=== PATIENT | female | born 2000 | race Caucasian/White ===

== ENCOUNTER 2021-03-24 22:22 | Emergency (ER) | payer MEDICAID, SELFPAY ==
[2021-03-24 22:27] VITALS: BP 104/67; PULSE 84; RESP 17; TEMP 36.8; O2SAT 97
--- NOTE | 2021-03-24 22:28 | ED.GENADUL_ITS ---
Discharge Plan Disposition Patient Disposition: HOME Condition: Stable Discharge Details Clinical Impression: Polysubstance abuse, Skin lesion, Cellulitis Primary Care Provider: Mahesh Phillips ED Provider: Ronaldo Barajas Home Meds and New Rx's Prescriptions: New hydroxyzine HCl 25 mg tablet 25 mg PO TID PRN (Reason: itching) Qty: 20 RF: 0 Continued sulfamethoxazole-trimethoprim [Bactrim DS] 800-160 mg tablet 1 tab PO Q12H Qty: 20 RF: 0 mupirocin 2 % ointment 1 applic topical TID Qty: 22 RF: 0 Discharge Instructions Instructions: Cellulitis (ED) Additional Instructions: At this time you do not have a fever. I cannot stress the importance of compliance with both topical and oral antibiotics. It is extremely important that you stop picking at your skin. Warm compresses every 2 hours for 20 minutes. I would also recommend that he stop using illicit drugs. I will provide you a prescription to help you with the itching. Take this medication as directed. Please watch for new or worsening symptoms and return to the ER for any concerns. I would like you to follow-up with your new primary care provider on Monday as already scheduled and if necessary obtain a dermatology referral at that time Discharge Data Discharge Date/Time-TO BE ENTERED AT DEPARTURE: 03/24/21 22:50 Medical Decision Making 20-year-old female who reports skin lesions on her scalp since 2019. She reports a recent IV fentanyl and heroin use as well as smoking methamphetamines over the past 5 days. She was seen at the walk-in clinic recently, placed on Bactroban and Bactrim but did not start taking the Bactrim until yesterday. Clinically she appears anxious, restless, during my examination she is constantly picking at her skin, scratching her scalp. This certainly does not help her skin lesions. Clinically she is afebrile, appears well, nontoxic, pulse 84, blood pressure 104/67. I do believe that topical Bactroban and oral Bactrim is certainly a reasonable course of antibiotics; however, she has only been on the Bactrim for less than a full 24 hours. I suspect she will need to be on this medications longer than 24 hours to truly see a significant improvement. She does not appear septic or toxic. She reports that the itching is worsening, I will provide her a prescription for Atarax. She is scheduled to be seen by her new primary care provider on Monday. She may eventually need ref erral to dermatology as well. Patient comfortable this plan and has no additional questions or concerns HPI General Mode of arrival: ambulatory . Date/Time Provider Initiated Documentation: 03/24/21 22:23 . Limitations to Documentation: no limitations . Information obtained by: patient . HPI Narrative: This is a 20-year-old female with a past medical history that includes current smoker, spina bifida occulta, polysubstance abuse, anxiety, chronic back pain, presenting to the ER for evaluation. She reports that she last used IV fentanyl and heroin over the past 24-48 hours. She reports that she last smoked methamphetamines approximately 5 days ago. She states that she has had a skin lesion on her scalp since 2018. She states that it intermittently gets better but then becomes itchy and she scratches at it, it subsequently becomes infected. The area is painful, mobile, excoriated, and now she does not grow hair in this area. She states that over the past 2 weeks it has worsened. She also points out 2 lesions, 1 to each bilateral lower extremity that she is worried about being infected. During my HPI and examination she is scratching them nonstop. She was seen at the urgent care on Monday, given topical Bactroban and oral Bactrim. Began using the Bactroban on Monday but still be prescription for Bactrim yesterday, has had 2 doses. She is scheduled to be seen by her new primary care provider on Monday. She does state that her symptoms are slightly better since taking the antibiotics but they are not gone, and they are itchy, so she is return to the ER. She denies recent illness or trauma. She denies headache, neck pain, cough, shortness of breath, chest pain, abdominal pain, nausea, vomiting, joint pain. She states that she has been seen at least 15 times for this in the past, that she was evaluated in [place] and nobody believes that she has blue fibers coming out of her skin. Related Data Home Medications Medication Instructions Recorded Confirmed mupirocin 2 % topical ointment 1 applic TOPICAL TID #22 g 03/19/21 03/24/21 sulfamethoxazole 800 1 tab PO Q12H #20 tab 03/19/21 03/24/21 mg-trimethoprim 160 mg tablet hydroxyzine HCl 25 mg PO TID PRN #20 tab 03/24/21 Previous Rx's Medication Instructions Recorded mupirocin 2 % topical ointment 1 applic TOPICAL TID #22 g 03/19/21 sulfamethoxazole 800 1 tab PO Q12H #20 tab 03/19/21 mg-trimethoprim 160 mg tablet hydroxyzine HCl 25 mg PO TID PRN #20 tab 03/24/21 Allergies Allergy/AdvReac Type Severity Reaction Status Date / Time amoxicillin Allergy Unknown Skin Rash Verified 03/19/21 17:06 Penicillins Allergy Unknown Skin Rash Verified 03/19/21 17:06 Review of Systems Constitutional Constitutional: Denies fatigue and Denies fever(s) Cardiovascular Cardiovascular: Denies chest pain and Denies dyspnea Respiratory Respiratory: Denies cough and Denies dyspnea Gastrointestinal Gastrointestinal: Denies abdominal pain, Denies nausea and Denies vomiting Musculoskeletal Musculoskeletal: Reports back pain (chronic), Denies numbness and Denies tingling Integumentary/Breasts Skin/Breast: Reports lesions Neurologic Neurologic: Denies numbness and Denies tingling Endocrine Endocrine: Denies fatigue PFSH Medical History Abnormal computed tomography angiography (CTA) (~07/03/19) Acute midline thoracic back pain (~03/14/17) Amenorrhea (~05/19/20) Anxiety disorder, unspecified (~10/22/19) Cannabis dependence (~10/22/19) Cystic acne (~08/24/19) Delusional disorder, somatic type (~10/22/19) Endocarditis of tricuspid valve (~07/01/19) H/O fracture of lower leg H/O fracture of wrist right Hearing loss (~10/02/08) History of first degree burn (~06/14/16) lower limbs History of second degree burn (~06/14/16) thigh History of use of hearing aid HSV-1 (herpes simplex virus 1) infection (~05/23/19) IV drug user (~07/01/19) Lymphadenopathy (~07/08/16) Right Hilar Lymph Node 07/01/19 Methamphetamine use disorder, moderate (~10/22/19) Methicillin resistant Staphylococcus aureus infection Polysubstance abuse (~07/03/19) Septic embolism (~07/01/19) Small pleural effusion (~07/01/19) right Spina bifida occulta (~04/29/15) Splenomegaly (~07/01/19) Tobacco use Surgical History H/O wisdom tooth extraction Family History Mother No problems noted. Father No problems noted. Sister No problems noted. Maternal Grandfather No problems noted. Paternal Grandfather , 30's No problems noted. Maternal Grandmother Depression Paternal Grandmother , 50's Cancer Social History Smoking/Tobacco Use Status: Former Tobacco Use tobacco type: cigarettes and e- cigarettes Quit Date: 12/28/20 Second Hand Exposure: Yes Smoking risk assessment performed?: Yes Alcohol Intake: never Drug use: Occasionally Substance use type: marijuana Caregiver/Support person: No Household members: family Housing: house Communication Needs: None Do you need help understanding health information?: Never Pets and animals: Yes Pets and animals: dog(s) Sexually active: No Do you think of yourself as: straight/heterosexual Current gender identity: female What is your relationship status?: never How often do you talk on the phone with friends or family?: three or more times per week How often do you get together with friends or relatives?: three or more times per week How often do you attend yazdanism or confucianist services?: decline to answer Do you belong to any clubs or organized social groups?: no Panel score (0-1 are the most socially isolated patients): 1 What type of physical activity do you participate in: walking Duration: < 15 minutes/day Frequency: 1-2 times per week Janeth/Buddhist: No preference Seatbelt use: always Helmet use: Yes Helmet use: always Drive intox or ride w/intox refrigerated company driver: No Do you feel safe at home: Yes Exam Const General: cooperative, comfortable, no acute distress, anxious and disheveled Orientation: alert, awake and oriented x3 HENMT Head: normocephalic and atraumatic Mouth: moist mucous membranes Eyes General: appearance normal, both eyes and all related structures Conjunctivae: conjunctivae normal Neck Neck: normal visual inspection, full ROM, no meningeal signs, trachea midline and supple Resp Effort & Inspection: normal respiratory effort and able to speak in complete sentences Auscultation: clear to auscultation bilaterally Cardio Rate: regular rate Rhythm: regular rhythm Skin Other: There are multiple lesions throughout her body associated with what appears to be skin picking. To these lesions, bilateral lower extremities, do appear to have the center excoriated and has localized erythema, approximately dime sized. Minimal warmth. No drainage, induration or fluctuance, or tenderness. Patient also has 3 separate lesions to her scalp that are without any hair, appear excoriated down to the scalp, appear erythematous, raw, with serous fluid. No purulent drainage or warmth. There is minimal diffuse discomfort. There is not appear to be any spreading erythema or signs of cellulitis. Neuro General: patient alert, patient awake, patient oriented x3, moves all extremities and no focal motor deficits Speech: speech normal Gait: normal gait Motor: muscle tone normal throughout Sensory Exam: no sensory deficits noted Extrem General: full ROM and capillary refill normal Psych Appearance: disheveled Mental Status: mental status grossly normal Speech and Movement: pressured speech and restless Mood: anxious mood Affect: anxious affect Attitude: cooperative
--- NOTE | 2021-03-24 22:32 | NUR.NOTE ---
Nursing Note: [id number] PATCH ON TOP OF SCALP. REDNESS AND OPEN SKIN NOTED.
--- NOTE | 2021-03-24 22:34 | NUR.NOTE ---
Nursing Note: PT STS STARTED ORAL ABX YESTERDAY.
--- NOTE | 2021-03-24 22:36 | NUR.NOTE ---
Nursing Note: PT STS HAD APPT FOR PCP ON MONDAY.
== END 2021-03-24 22:50 | disposition home or self-care (01) ==
PROVIDERS: Emergency Provider Physician Assistant; PCP Nurse Practitioner Family
DX: F42.4 Excoriation (skin-picking) disorder (principal); L03.811 Cellulitis of head [any part, except face]; F19.10 Other psychoactive substance abuse, uncomplicated; L29.8 Other pruritus
CPT/HCPCS: 99283

== ENCOUNTER 2023-01-24 01:22 | Emergency (ER) | payer MEDICAID, SELFPAY ==
[2023-01-24 01:31] VITALS: BP 138/82; PULSE 125; RESP 24; TEMP 37; O2SAT 98
--- NOTE | 2023-01-24 01:40 | W.ED.GENAD ---
Discharge Plan Disposition Patient Disposition: Home Discharge Details Chief Complaint: Cellulitis Clinical Impression: Cellulitis Primary Care Provider: Unknown,Unknown ED Provider: Mich Mitchell Home Meds and New Rx's Prescriptions: No Action sulfamethoxazole-trimethoprim [Bactrim DS] 800-160 mg tablet 1 tab PO Q12H Qty: 20 0RF cephalexin [Keflex] 500 mg Capsule 500 mg PO 4XD Discharge Instructions Instructions: Cellulitis (ED) Additional Instructions: At this time the cellulitis for your leg appears to be improving. The redness is diminishing. You are on the appropriate antibiotics. Please continue to take these as directed. The area on your leg at the center does not show any sign of abscess currently on the ultrasound, however there is a moderate likelihood that you may develop a large fluid collection that does need to be drained. While this is not the case at this point, I want you to monitor closely for symptoms of increased swelling, increased tenseness of the skin, or worsening of your symptoms in general. If you notice any changes that are of concern whatsoever please do not hesitate to contact us here at the emergency department or come back for reassessment. Please take 800 mg of ibuprofen every 6 hours and 1000 mg of Tylenol every 6 hours as needed for pain or fever. If you notice any worsening of your symptoms, or any new symptoms such as vomiting, diarrhea, fever, chills, shortness of breath, chest pain, numbness, weakness, or fainting , please return immediately to the emergency department for reevaluation. Please follow up with your primary care provider as soon as possible for reassessment and reevaluation. As always, it was a pleasure participating in your medical care today. Medical Decision Making 22-year-old female with a past medical history of spina bifida, splenomegaly, previous IV drug user, HSV 1, presents today for evaluation of cellulitis. Patient was seen and assessed at the [facility] emergency department last night. She had notable cellulitis on the right anterior thigh, the area was marked with marker, needle aspiration was performed and a very small amount of purulent fluid was removed per the patient. She was started on Keflex and Bactrim, and has been taking this as directed. She did feel slightly warm tonight subjectively, and did feel that the area on the right thigh was slightly more tender. She came to the ER for further assessment. She has been taking the antibiotic as directed. She denies any vomiting or diarrhea. She denies any spreading of the redness. No other complaints at this time. No other modifying factors. She has been taking intermittent NSAIDs, the most recent NSAID was over 6 hours ago that was ibuprofen. Patient's right anterior thigh demonstrates an area of cellulitis. There is a large oval/irregularly shaped marker drawing on the right leg which was the area of the redness/cellulitis yesterday. The cellulitis/redness has notably diminished by about 50% compared to then. It is notably smaller than the previous outline. At the center there is an area that is roughly 2 cm to 3 cm in diameter. It is red, not overly tense, with no profound fluctuance. No active drainage. The area where the needle aspiration was performed is still present with no drainage. No significant generalized swelling of the thigh. Minimal pain. Symptoms appear consistent with notable improving cellulitis. The central area though was evaluated via ultrasound and there is a minimal amount of cobblestoning but no evidence of abscess or fluctuant collection whatsoever. No large fluid collection is noted. No evidence of air bubbles on bedside ultrasound, no subcutaneous crepitus on tactile exam. Patient otherwise appears well. Heart rate initially was elevated but then went down during the patient's stay during clinical evaluation. Patient is notably afebrile on oral temperature assessment. No murmur noted on cardiac auscultation. Symptoms inconsistent with endocarditis. No evidence of septic shock whatsoever. Patient otherwise looks clinically stable. I had a discussion with the patient about incision at this time even though there was no evidence of abscess. Patient has declined incision currently, however we did have a long discussion about signs and symptoms that would represent an abscess that will need incision and drainage. I do suspect that the patient may have evidence of this in the next 48 to 72 hours and I spent a notable amount of time making clear as to what symptoms would necessitate a prompt return for potential drainage if they did occur. Otherwise patient is stable and appropriate for discharge with close follow-up. Will give Toradol here, and recommend Tylenol and Motrin at home. Recommend continue taking the antibiotics. Discussed red flags for which to return. I have extensively reviewed the treatment plan and discharge instructions with the patient. I have addressed all patient concerns at this time. The patient was made aware of what symptoms to monitor for that would warrant a return to the emergency department. Discussed the plan with the patient, they demonstrate verbal understanding and agreement with our assessment and plan at this time. The documentation in this chart was dictated using [employer] dictation software. Please excuse any dictation errors. HPI General Date/Time Provider Initiated Documentation: 01/24/23 01:25. HPI Narrative: 22-year-old female with a past medical history of spina bifida, splenomegaly, previous IV drug user, HSV 1, presents today for evaluation of cellulitis. Patient was seen and assessed at the [facility] emergency department last night. She had notable cellulitis on the right anterior thigh, the area was marked with marker, needle aspiration was performed and a very small amount of purulent fluid was removed per the patient. She was started on Keflex and Bactrim, and has been taking this as directed. She did feel slightly warm tonight subjectively, and did feel that the area on the right thigh was slightly more tender. She came to the ER for further assessment. She has been taking the antibiotic as directed. She denies any vomiting or diarrhea. She denies any spreading of the redness. No other complaints at this time. No other modifying factors. She has been taking intermittent NSAIDs, the most recent NSAID was over 6 hours ago that was ibuprofen. Related Data Home Medications Medication Instructions Recorded Confirmed sulfamethoxazole 800 1 tab PO Q12H #20 tabs 03/19/21 01/24/23 mg-trimethoprim 160 mg tablet (Bactrim DS) cephalexin 500 mg capsule 500 mg PO 4XD 01/24/23 01/24/23 Previous Rx's Medication Instructions Recorded sulfamethoxazole 800 1 tab PO Q12H #20 tabs 03/19/21 mg-trimethoprim 160 mg tablet (Bactrim DS) Allergies Allergy/AdvReac Type Severity Reaction Status Date / Time amoxicillin Allergy Unknown Skin Rash Verified 01/24/23 01:30 Penicillins Allergy Unknown Skin Rash Verified 01/24/23 01:30 General Stated Complaint: Cellulitis LOUISE: 4 Review of Systems All systems reviewed & are unremarkable except as noted in HPI and below PFSH All Active Problems Skin lesion (Acute) Cellulitis (Acute) History of first degree burn (Acute ~06/14/16) lower limbs History of second degree burn (Acute ~06/14/16) thigh Tobacco use (Acute) Splenomegaly (Acute ~07/01/19) Spina bifida occulta (Acute ~04/29/15) Small pleural effusion (Acute ~07/01/19) right Septic embolism (Acute ~07/01/19) Polysubstance abuse (Acute ~07/03/19) Methamphetamine use disorder, moderate (Acute ~10/22/19) Lymphadenopathy (Acute ~07/08/16) Right Hilar Lymph Node 07/01/19 IV drug user (Acute ~07/01/19) HSV-1 (herpes simplex virus 1) infection (Acute ~05/23/19) Hearing loss (Acute ~10/02/08) Endocarditis of tricuspid valve (Acute ~07/01/19) Delusional disorder, somatic type (Acute ~10/22/19) Cystic acne (Acute ~08/24/19) Cannabis dependence (Acute ~10/22/19) Anxiety disorder, unspecified (Acute ~10/22/19) Amenorrhea (Acute ~05/19/20) Abnormal computed tomography angiography (CTA) (Acute ~07/03/19) Medical History Acute midline thoracic back pain (~03/14/17) H/O fracture of lower leg H/O fracture of wrist right History of use of hearing aid Methicillin resistant Staphylococcus aureus infection Surgical History H/O wisdom tooth extraction Family History Mother No problems noted. Father No problems noted. Sister No problems noted. Maternal Grandfather No problems noted. Paternal Grandfather , 30's No problems noted. Maternal Grandmother Depression Paternal Grandmother , 50's Cancer Social History Smoking/Tobacco Use Status: Former Tobacco Use tobacco type: cigarettes and e-cigarettes Quit Date: 12/28/20 Second Hand Exposure: Yes Smoking risk assessment performed?: Yes Alcohol Intake: never Drug use: Occasionally Substance use type: marijuana Caregiver/Support person: No Household members: family Housing: house Communication Needs: None Do you need help understanding health information?: Never Pets and animals: Yes Pets and animals: dog(s) Sexually active: No Do you think of yourself as: straight/heterosexual Current gender identity: female What is your relationship status?: never How often do you talk on the phone with friends or family?: three or more times per week How often do you get together with friends or relatives?: three or more times per week How often do you attend restorationism or holiness services?: decline to answer Do you belong to any clubs or organized social groups?: no Panel score (0-1 are the most socially isolated patients): 1 What type of physical activity do you participate in: walking Duration: < 15 minutes/day Frequency: 1-2 times per week Janeth/Denominational: No preference Seatbelt use: always Helmet use: Yes Helmet use: always Drive intox or ride w/intox crew car driver: No Do you feel safe at home: Yes Exam Narrative Exam Narrative: 1.Const: Well-nourished, Well-developed, appearing stated age 2.Eyes: PERRL, no conjunctival injection, and symmetrical lids. 3.ENT: Atraumatic external nose and ears. Moist MM. Neck: Symmetric, trachea midline, No thyromegaly. 4.CVS: +S1/S2, No murmurs or gallops. Peripheral pulses 2+ and equal in all extremities. Brisk capillary refill in all extremities. 5.RESP: Unlabored respiratory effort. Clear to auscultation bilaterally. No wheezes rales or rhonchi 6.GI: Soft, Nontender/Nondistended, No hepatosplenomegaly. No guarding or rebound. 7.MSK: Normocephalic/Atraumatic, Extremities w/o deformity or ttp No cyanosis or clubbing, Normal movement of all extremities 8.Skin: Warm, Dry. Patient's right anterior thigh demonstrates an area of cellulitis. There is a large oval/irregularly shaped marker drawing on the right leg which was the area of the redness/cellulitis yesterday. The cellulitis/redness has notably diminished by about 50% compared to then. It is notably smaller than the previous outline. At the center there is an area that is roughly 2 cm to 3 cm in diameter. It is red, not overly tense, with no profound fluctuance. No active drainage. The area where the needle aspiration was performed is still present with no drainage. No significant generalized swelling of the thigh. Minimal pain. 9.Neuro: sole stitcher hand II-XII grossly intact. Sensation grossly intact, no focal neurologic deficits. 10.Psych: (AAO) x3. Appropriate mood and affect Course Vital Signs Vital signs: Vital Signs Temperature 37 C 01/24/23 01:31 Pulse 125 H 01/24/23 01:31 Respiratory Rate 24 01/24/23 01:31 Blood Pressure 138/82 01/24/23 01:31 Pulse Oximetry 98 01/24/23 01:31 Temperature 37 C 01/24/23 01:31 Temperature Source Oral 01/24/23 01:31 Pulse 125 H 01/24/23 01:31 Respiratory Rate 24 01/24/23 01:31 Blood Pressure 138/82 01/24/23 01:31 Blood Pressure Position Sitting 01/24/23 01:31 Pulse Oximetry 98 01/24/23 01:31 Oxygen Delivery Method Room Air 01/24/23 01:31 Oxygen Flow Rate 0 01/24/23 01:31
[2023-01-24] MEDS: Ketorolac 30 MG/ML VIAL IM (01:47)
[2023-01-24 01:52] VITALS: BP 129/83; PULSE 129; RESP 22; TEMP 36.9; O2SAT 98
== END 2023-01-24 02:01 | disposition home or self-care (01) ==
PROVIDERS: Emergency Provider Student in an Organized Health Care Education/Training Program
DX: L03.115 Cellulitis of right lower limb (principal); B00.9 Herpesviral infection, unspecified; F19.90 Other psychoactive substance use, unspecified, uncomplicated; R16.1 Splenomegaly, not elsewhere classified; Q76.0 Spina bifida occulta
CPT/HCPCS: 96372; 99284; J1885